=== PATIENT | female | born 1945 | race Caucasian/White ===

== ENCOUNTER → 2017-02-06 | Outpatient (CLI) | payer MEDICARE, BC ==
[2017-02-06 18:50] LABS: Basophils % (A) 1 %; CH 31.6; CHCM 32.1; Eosinophils # (A) 0.2 k/uL (0-0.7); Eosinophils % (A) 3 %; HCT 44.9 % (34.0-46.0); HDW 2.46; HGB 14.1 gm/dL (11.4-16.0); Luc # (Auto) 0.16; Luc % (Auto) 2; Lymphocytes # (A) 1.8 k/uL (1.0-4.8); Lymphocytes % (A) 27 %; MCH 30.9 pg (25.0-35.0); MCHC 31.3 g/dL (31.0-37.0); MCV 98.8 fL (80.0-100.0); Monocytes # (A) 0.4 k/uL (0-1.0); Monocytes % (A) 6 %; Neutrophils # (A) 4.1 k/uL (1.3-7.7); Neutrophils % (A) 62 %; RBC 4.54 m/uL (3.80-5.40); RDW 13.4 % (11.5-15.5); WBC 6.7 k/uL (3.8-10.6)
[2017-02-06 19:03] LABS: ALT 45 U/L (9-52); AST 25 U/L (14-36); Alkaline Phosphatase 122 U/L (38-126); Anion Gap 9 mmol/L; Blood Urea Nitrogen 17 mg/dL (7-17); Calcium 9.5 mg/dL (8.4-10.2); Carbon Dioxide 26 mmol/L (22-30); Chloride 105 mmol/L (98-107); Cholesterol 153 mg/dL (<200); Glucose 94 mg/dL (74-99); HDL Cholesterol 58 mg/dL (40-60); Non-African American GFR(MDRD) >60 (>60 ml/min/1.73 sqM); Potassium 4.9 mmol/L (3.5-5.1); Sodium 140 mmol/L (137-145); Total Bilirubin 0.6 mg/dL (0.2-1.3); Total Protein 6.9 g/dL (6.3-8.2)
== END | disposition home or self-care (01) ==
LOC: MMGSC 10:30
PROVIDERS: ATTEND Family Medicine
DX: E55.9 Vitamin D deficiency, unspecified (principal); E78.5 Hyperlipidemia, unspecified; I10 Essential (primary) hypertension; R79.89 Other specified abnormal findings of blood chemistry
CPT/HCPCS: 36415; 80053; 80061; 82306; 84439; 84443; 85025

== ENCOUNTER → 2017-11-22 | Outpatient (CLI) | payer MEDICARE, BC ==
--- NOTE | 2017-11-24 10:38 | MM ---
Reason for exam: screening (asymptomatic). Last mammogram was performed 14 years and 6 months ago. History: Patient is postmenopausal. Ultrasound-guided cyst aspiration of the left breast, December 26, 2001. 2 cyst aspirations of the left breast. Excisional biopsy of the left breast. Physical Findings: A clinical breast exam by your physician is recommended on an annual basis and results should be correlated with mammographic findings. MG 3D Screening Mammo W/Cad Bilateral CC and MLO view(s) were taken. Prior study comparison: May 19, 2003, left breast diagnostic mammogram. November 12, 2002, bilateral diagnostic mammogram. The breast tissue is heterogeneously dense. This may lower the sensitivity of mammography. Stable benign calcifications. Focal asymmetry upper left MLO view, 10.6cm from nipple. This finding is changed when compared with previous exams. ASSESSMENT: Incomplete: need additional imaging evaluation, BI-RAD 0 RECOMMENDATION: Special view mammogram of the left breast. If lesion persists on supplemental views, image directed ultrasound is recommended. [facility] will attempt to contact patient to return for supplemental views and ultrasound if indicated.
== END | disposition home or self-care (01) ==
LOC: RADMAMWWP 07:46
PROVIDERS: ATTEND Family Medicine
DX: Z12.31 Encounter for screening mammogram for malignant neoplasm of breast (principal)
CPT/HCPCS: 77063; 77067

== ENCOUNTER → 2017-12-05 | Outpatient (CLI) | payer MEDICARE, BC ==
--- NOTE | 2017-12-05 12:48 | MM ---
Reason for exam: additional evaluation requested from abnormal screening. Last mammogram was performed less than 1 month ago. History: Patient is postmenopausal. Ultrasound-guided cyst aspiration of the left breast, December 26, 2001. 2 cyst aspirations of the left breast. Excisional biopsy of the left breast. Took estrogen for 10 years beginning at age 38. Physical Findings: Nurse did not find any significant physical abnormalities on exam. MG 3D Work Up W/Cad LT Spot compression CC and spot compression MLO view(s) were taken of the left breast. Prior study comparison: November 22, 2017, bilateral MG 3d screening mammo w/cad. May 19, 2003, left breast diagnostic mammogram. The breast tissue is heterogeneously dense. This may lower the sensitivity of mammography. Persistent subtle 4mm focal asymmetry upper outer quadrant left breast at middle depth although improved from screening on additional views precautionary upper outer quadrant ultrasound will be performed. These results were verbally communicated with the patient and result sheet given to the patient on 12/05/17. ASSESSMENT: Incomplete: need additional imaging evaluation, BI-RAD 0 RECOMMENDATION: Ultrasound of the left breast. (upper outer quadrant)
--- NOTE | 2017-12-05 12:50 | USB ---
Reason for exam: additional evaluation requested from abnormal screening. History: Patient is postmenopausal. Ultrasound-guided cyst aspiration of the left breast, December 26, 2001. 2 cyst aspirations of the left breast. Excisional biopsy of the left breast. Took estrogen for 10 years beginning at age 38. US Breast Workup Limited LT Technologist: Mary Jo Kennedy, RT (R)(M) Left limited breast ultrasound including focal area of concern, retroareolar and axilla demonstrates no cystic or solid lesion seen. Left breast upper outer quadrant focal asymmetry on mammogram corresponds to an area of dense tissue. No suspicious sonographic findings. These results were verbally communicated with the patient and result sheet given to the patient on 12/05/17. ASSESSMENT: Benign, BI-RAD 2 RECOMMENDATION: Return to routine screening mammogram schedule for both breasts.
== END | disposition home or self-care (01) ==
LOC: RADMAMWWP 08:42
PROVIDERS: ATTEND Family Medicine
DX: R92.8 Other abnormal and inconclusive findings on diagnostic imaging of breast (principal)
CPT/HCPCS: 77065; 76642; G0279; 77061

== ENCOUNTER → 2019-01-02 | Outpatient (CLI) | payer MEDICARE, BC ==
--- NOTE | 2019-01-03 11:45 | MM ---
Reason for exam: screening (asymptomatic). Last mammogram was performed 1 year and 1 month ago. History: Patient is postmenopausal. Ultrasound-guided cyst aspiration of the left breast, December 26, 2001. 2 cyst aspirations of the left breast. Excisional biopsy of the left breast. Took estrogen for 10 years beginning at age 38. Physical Findings: A clinical breast exam by your physician is recommended on an annual basis and results should be correlated with mammographic findings. MG 3D Screening Mammo W/Cad Bilateral CC and MLO view(s) were taken. Prior study comparison: December 05, 2017, left breast MG 3d work up w/cad LT. November 22, 2017, bilateral MG 3d screening mammo w/cad. The breast tissue is heterogeneously dense. This may lower the sensitivity of mammography. Finding: There are typically benign round, diffuse/scattered, regional, linear calcifications in both breasts. Previous mammotome biopsy in the left breast. There is no discrete abnormality. ASSESSMENT: Benign, BI-RAD 2 RECOMMENDATION: Routine screening mammogram of both breasts in 1 year.
== END | disposition home or self-care (01) ==
LOC: RADMAMWWP 10:16
PROVIDERS: ATTEND Family Medicine
DX: Z12.31 Encounter for screening mammogram for malignant neoplasm of breast (principal)
CPT/HCPCS: 77063; 77067

== ENCOUNTER → 2020-09-03 | Outpatient (CLI) | payer MEDICARE, BC ==
--- NOTE | 2020-09-04 11:56 | MM ---
Reason for exam: screening (asymptomatic). Last mammogram was performed 1 year and 8 months ago. History: Patient is postmenopausal. Ultrasound-guided cyst aspiration of the left breast, December 26, 2001. 2 cyst aspirations of the left breast. Excisional biopsy of the left breast. Took estrogen for 10 years beginning at age 38. Physical Findings: A clinical breast exam by your physician is recommended on an annual basis and results should be correlated with mammographic findings. MG 3D Screening Mammo W/Cad Bilateral CC and MLO view(s) were taken. Prior study comparison: January 02, 2019, bilateral MG 3d screening mammo w/cad. December 05, 2017, left breast MG 3d work up w/cad LT. The breast tissue is heterogeneously dense. This may lower the sensitivity of mammography. Stable benign calcifications. There is no discrete abnormality. No significant changes when compared with prior studies. ASSESSMENT: Benign, BI-RAD 2 RECOMMENDATION: Routine screening mammogram of both breasts in 1 year.
== END | disposition home or self-care (01) ==
LOC: RADMAMWWP 10:43
PROVIDERS: ATTEND Family Medicine
DX: Z12.31 Encounter for screening mammogram for malignant neoplasm of breast (principal); Z78.0 Asymptomatic menopausal state
CPT/HCPCS: 77063; 77067

== ENCOUNTER → 2021-01-14 | Outpatient (CLI) | payer MEDICARE, BC ==
--- NOTE | 2021-01-14 13:24 | US ---
EXAMINATION TYPE: US venous doppler duplex LE LT DATE OF EXAM: 01/14/2021 1:01 PM COMPARISON: NONE CLINICAL HISTORY: R22.42 left lower limb swelling. left leg edema. patient on Plavix SIDE PERFORMED: left TECHNIQUE: The lower extremity deep venous system is examined utilizing real time linear array sonog crista with graded compression, doppler sonography and color-flow sonography. VESSELS IMAGED: Common Femoral Vein Deep Femoral Vein Greater Saphenous Vein * Femoral Vein Popliteal Vein Small Saphenous Vein * Proximal Calf Veins (* superficial vessels) Left Leg: no evidence of DVT IMPRESSION: 1. Left lower extremity ultrasound is negative for deep venous thrombosis.
== END | disposition home or self-care (01) ==
LOC: RADUSWWP 12:41
PROVIDERS: ATTEND Family Medicine
DX: R22.42 Localized swelling, mass and lump, left lower limb (principal)

== ENCOUNTER → 2021-04-01 | Outpatient (CLI) | payer MEDICARE, BC ==
--- NOTE | 2021-04-01 12:09 | CT ---
EXAMINATION TYPE: CT upper extremity LT wo con DATE OF EXAM: 04/01/2021 COMPARISON: None HISTORY: Soft tissue tumor, palpable abnormality left shoulder CT DLP: 373.60 mGycm Automated exposure control for dose reduction was used. Contrast: None Technique: Axial images 3 mm thick sections. Reconstructed images in the coronal plane and sagittal p gus. BBs teresa the palpable region. FINDINGS: The acromioclavicular junction is normal. Glenohumeral junction appears normal. No acute fractures of the visualized osseous structures are evident. Muscle density appears normal. Subcutaneous tissues appear normal. No discrete masses at the level ma rked by the 3 BBs are evident. Underlying lipoma may be difficult to visualize. Consider ultrasound o f the soft tissues. IMPRESSION: 1. NO DISCRETE ABNORMALITY BY CT AT THE PALPABLE REGIONS OF THE LEFT SHOULDER. 2. IF ADDITIONAL WORKUP WOULD BE OF BENEFIT, ULTRASOUND COULD BE PERFORMED TO EVALUATE FOR LIPOMAS.
== END ==
LOC: RADCTMAIN 07:11
PROVIDERS: ATTEND Family Medicine
DX: D21.12 Benign neoplasm of connective and other soft tissue of left upper limb, including shoulder (principal)

== ENCOUNTER → 2021-04-30 | Outpatient (CLI) | payer MEDICARE, BC ==
--- NOTE | 2021-04-30 10:59 | US ---
EXAMINATION TYPE: US extremity nonvasc mass LT DATE OF EXAM: 04/30/2021 COMPARISON: Prior ultrasound March 10, 2015. Prior CT April 01, 2021 CLINICAL HISTORY: R22.32 Left shoulder upper bicep mass. Palpable mass on left upper arm onset 2-3 ye ars ago, mass is increasing in size and tenderness. Left upper arm, anterior to lateral Deltoid muscle, An isoechoic mass is seen in palpable area measur ing 4.3 x 4.9 x 1.1 cm Images saved show superficial hyperechoic area indistinct or inseparable from adjacent subcutaneous f at could reflect focal lipoma. It is not well visualized as distinct lesion on recent CT or ultrasoun d. No suspicious vascular component on ultrasound. No suspicious solid nodular component not of fat d ensity or soft tissue densities septation on CT. IMPRESSION: Subcutaneous fat versus focal subcutaneous lipoma.
== END | disposition home or self-care (01) ==
LOC: RADUSWWP 10:26
PROVIDERS: ATTEND Family Medicine
DX: R22.32 Localized swelling, mass and lump, left upper limb (principal)

== ENCOUNTER → 2022-06-03 | Outpatient (CLI) | payer MEDICARE, BC ==
--- NOTE | 2022-06-06 08:55 | MM ---
Reason for Exam: Screening (asymptomatic). Last mammogram was performed 1 year(s) and 9 month(s) ago. Patient History: Menarche at age 10. First Full-Term at age 15. Postmenopausal. Estrogen for 10 years from age 38 until age 48. Cyst Aspiration on the Left side. Cyst Aspiration on the Left side. Excisional Biopsy on the Left side. 12/26/2001, Ultrasound-Guided Cyst Aspiration on the Left side. Risk Values: Roxie 5 year model risk: 1.4%. NCI Lifetime model risk: 2.4%. Prior Study Comparison: 12/05/2017 Left Diagnostic Mammogram, [facility]ED WITH [facility]. 01/02/2019 Bilateral Screening Mammogram, MERGED WITH [facility]. 09/03/2020 Bilateral Screening Mammogram, MERGED WITH [facility]. Tissue Density: The breast tissue is heterogeneously dense. This may lower the sensitivity of mammography. Findings: Analyzed By CAD. There is no suspicious group of microcalcifications or new suspicious mass in either breast. Benign calcifications within both breasts. Overall Assessment: Benign, BI-RAD 2 Management: Screening Mammogram of both breasts in 1 year. A clinical breast exam by your physician is recommended on an annual basis and results should be correlated with mammographic findings. Electronically signed and approved by: Heladio Miller D.O.
== END | disposition home or self-care (01) ==
LOC: RADMAMWWP 14:36
PROVIDERS: ATTEND Family Medicine
DX: Z12.31 Encounter for screening mammogram for malignant neoplasm of breast (principal); Z78.0 Asymptomatic menopausal state
CPT/HCPCS: 77063; 77067

== ENCOUNTER 2022-11-11 12:06 | Observation (INO) | payer MEDICARE, BC ==
[2022-11-11 12:53] LABS: Basophils % (A) 0 %; Eosinophils # (A) 0.3 k/uL (0-0.7); Eosinophils % (A) 3 %; HCT 41.1 % (34.0-46.0); HGB 13.9 gm/dL (11.4-16.0); Lymphocytes # (A) 2.4 k/uL (1.0-4.8); Lymphocytes % (A) 28 %; MCH 31.9 pg (25.0-35.0); MCHC 33.7 g/dL (31.0-37.0); MCV 94.7 fL (80.0-100.0); Mean Platelet Volume 8.2; Monocytes # (A) 0.7 k/uL (0-1.0); Monocytes % (A) 8 %; Neutrophils # (A) 5.2 k/uL (1.3-7.7); Neutrophils % (A) 59 %; Platelet Count 266 k/uL (150-450); RBC 4.34 m/uL (3.80-5.40); RDW 13.3 % (11.5-15.5); WBC 8.8 k/uL (3.8-10.6)
--- NOTE | 2022-11-11 12:57 | ED ---
Chest Pain HPI - General Chief Complaint: Chest Pain Stated Complaint: Chest pain Time Seen by Provider: 11/11/22 12:20 Source: patient Mode of arrival: ambulatory Limitations: no limitations - History of Present Illness Initial Comments: 77-year-old female presents to the emergency department reporting chest pain. Does have history of hypertension, hyperlipidemia and NM. Follows with Dr. Reynoso. Does not believe she has any stents. States that her pain started last night. She was awoken from sleep around 1 AM due to the pain. Located over the left chest and goes to the left shoulder and around her back. Pain is worse with movement and deep breathing. Denies fevers, chills or cough. No history of DVT or PE. No calf pain or swelling. Does admit to NM history. He is to take Plavix however has subsequently come off of that. Last heart cath was several years ago. Took an aspirin this morning. Denies taking any other medications for her symptoms. No other alleviating, precipitating or modifying factors - Related Data Home Medications Medication Instructions Recorded Confirmed ALPRAZolam [Xanax] 0.25 mg PO DAILY PRN 09/16/15 09/22/15 Atorvastatin [Lipitor] 80 mg PO DAILY 09/16/15 09/22/15 Clopidogrel [Plavix] 75 mg PO DAILY 09/16/15 09/22/15 atenoloL 25 mg PO DAILY 09/16/15 09/23/15 Allergies Allergy/AdvReac Type Severity Reaction Status Date / Time erythromycin base AdvReac Unknown FACE RED, Verified 11/11/22 12:12 FEELS "HYPER" rosuvastatin calcium AdvReac Unknown FACE RED , Verified 11/11/22 12:12 [From Crestor] FEEL "HYPER" Sulfa (Sulfonamide AdvReac Unknown FACE RED, Verified 11/11/22 12:12 Antibiotics) FEELS "HYPER" Review of Systems ROS Statement: Those systems with pertinent positive or pertinent negative responses have been documented in the HPI. ROS Other: All systems not noted in ROS Statement are negative. Past Medical History Past Medical History: Hyperlipidemia, Hypertension, Myocardial Infarction (NM) Last Myocardial Infarction Date:: ?2012 History of Any Multi-Drug Resistant Organisms: None Reported Past Surgical History: Back Surgery, Heart Catheterization, Joint Replacement, Orthopedic Surgery Additional Past Surgical History / Comment(s): cataract rt eey, TOTAL RIGHT HIP , RIGHT KNEE ARTHROSCOPY. Past Anesthesia/Blood Transfusion Reactions: No Reported Reaction Past Psychological History: Anxiety Past Alcohol Use History: Occasional Past Drug Use History: None Reported - Past Family History Brother(s) Family Medical History: Cancer Sister(s) Family Medical History: Cancer Daughter(s) Family Medical History: Cancer General Exam Limitations: no limitations General appearance: alert, in no apparent distress Head exam: Present: atraumatic, normocephalic, normal inspection Eye exam: Present: normal appearance, PERRL, EOMI. Absent: scleral icterus, conjunctival injection, periorbital swelling ENT exam: Present: normal exam, mucous membranes moist Neck exam: Present: normal inspection. Absent: tenderness, meningismus, lymphadenopathy Respiratory exam: Present: normal lung sounds bilaterally. Absent: respiratory distress, wheezes, rales, rhonchi, stridor Cardiovascular Exam: Present: regular rate, normal rhythm, normal heart sounds. Absent: systolic murmur, diastolic murmur, rubs, gallop, clicks GI/Abdominal exam: Present: soft, normal bowel sounds. Absent: distended, tenderness, guarding, rebound, rigid Extremities exam: Present: normal inspection, full ROM, normal capillary refill. Absent: tenderness, pedal edema, joint swelling, calf tenderness Back exam: Present: normal inspection Neurological exam: Present: alert, oriented X3, CN II-XII intact Psychiatric exam: Present: normal affect, normal mood Skin exam: Present: warm, dry, intact, normal color. Absent: rash Course Vital Signs 11/11/22 11/11/22 12:12 12:34 Temperature 98.4 F 97.8 F Pulse Rate 84 82 Respiratory 18 18 Rate Blood Pressure 131/82 152/80 O2 Sat by Pulse 95 95 Oximetry Chest Pain MDM - MDM Was pt. sent in by a medical professional or institution (, PA, BALL RACKER, urgent care, hospital, or long term...) When possible be specific @ -No Did you speak to anyone other than the patient for history (EMS, parent, family, police, friend...)? What history was obtained from this source @ -No Did you review nursing and triage notes (agree or disagree)? Why? @ -I reviewed and agree with nursing and triage notes Were old charts reviewed (outside hosp., previous admission, EMS record, old EKG, old radiological studies, urgent care reports/EKG's, long term records)? Report findings @ -Old EKG was reviewed and compared to EKG completed today Differential Diagnosis (chest pain, altered mental status, abdominal pain women, abdominal pain men, vaginal bleeding, weakness, fever, dyspnea, syncope, headache, dizziness, GI bleed, back pain, seizure, CVA, palpatations, mental health, musculoskeletal)? @ -Differential Chest Pain: Stable Angina, Unstable Angina, STEMI, NSTEMI Aortic Dissection, Pneumothorax, Musculoskeletal, Esophageal Spasm GERD, Cholecystitis, Pancreatitis, Zoster, this is not meant to be an all-inclusive list. EKG interpreted by me (3pts min.). @ -Yes and demonstrates sinus rhythm with a rate of 82. HI interval 198. QRS and 62. QTC of 460. Right bundle branch block. No acute ST segment elevations or depressions X-rays interpreted by me (1pt min.). @ -Yes and demonstrates no acute process CT interpreted by me (1pt min.). @ -None done U/S interpreted by me (1pt. min.). @ -None done What testing was considered but not performed or refused? (CT, X-rays, U/S, labs)? Why? @ -None What meds were considered but not given or refused? Why? @ -Nitro, morphine, Tylenol were all offered to the patient however she refused on 2 separate occasions Did you discuss the management of the patient with other professionals (professionals i.e. , PA, BALL RACKER, lab, RT, psych nurse, social worker school, highway patrol pilot, teacher, administrative officer, director of casework department)? Give summary @ -Dr. Okeefe was agreeable to take admission for the patient Was smoking cessation discussed for >3mins.? @ -No Was critical care preformed (if so, how long)? @ -No Were there social determinants of health that impacted care today? How? (Homelessness, low income, unemployed, alcoholism, drug addiction, transportation, low edu. Level, literacy, decrease access to med. care, senior living, rehab)? @ -No Was there de-escalation of care discussed even if they declined (Discuss DNR or withdrawal of care, Hospice)? DNR status @ -No What co-morbidities impacted this encounter? (DM, HTN, Smoking, COPD, CAD, Cancer, CVA, ARF, Chemo, Hep., AIDS, mental health diagnosis, sleep apnea, morbid obesity)? @ -Hypertension, hyperlipidemia Was patient admitted / discharged? Hospital course, mention meds given and route, prescriptions, significant lab abnormalities, going to OR and other pertinent info. @ -Upon arrival patient was placed into room 22. A thorough history and physical exam was performed. 12-lead EKG was completed which demonstrates no acute ST segment elevation. Patient remains on continuous pulse ox and cardiac monitoring. Laboratory studies are conducted. Chest x-ray was performed. Results are discussed with the patient. Due to her history of hypertension, hyperlipidemia and NM the patient will be admitted for chest pain. Spoke with Dr. Okeefe who who agreed to the admission. Undiagnosed new problem with uncertain prognosis? @ -yes Drug Therapy requiring intensive monitoring for toxicity (Heparin, Nitro, Insulin, Cardizem)? @ -No Were any procedures done? @ -No Diagnosis/symptom? @ -acute chest pain, possible acs, hx NM Acute, or Chronic, or Acute on Chronic? @ -acute Uncomplicated (without systemic symptoms) or Complicated (systemic symptoms)? @ -complicated Side effects of treatment? @ -No Exacerbation, Progression, or Severe Exacerbation? @ -No Poses a threat to life or bodily function? How? (Chest pain, USA, NM, pneumonia, PE, COPD, DKA, ARF, appy, cholecystitis, CVA, Diverticulitis, Homicidal, Suicidal, threat to staff... and all critical care pts) @ -Yes chest pain can indicate acute coronary event Disposition Clinical Impression: Chest pain Disposition: ADMITTED IP TO THIS HOSP Condition: Stable Is patient prescribed a controlled substance at d/c from ED?: No Referrals: Margot Pete MD [Primary Care Provider] - 1-2 days Time of Disposition: 14:29 Decision to Admit Reason: Admit from EC Decision Date: 11/11/22 Decision Time: 14:29
[2022-11-11 13:17] LABS: ALT 24 U/L (4-34); AST 25 U/L (14-36); African American GFR (CKD) >90 (>60 ml/min/1.73 sqM); Albumin 4.3 g/dL (3.5-5.0); Alkaline Phosphatase 117 U/L (38-126); Anion Gap 10 mmol/L; Blood Urea Nitrogen 18 mg/dL (7-17); Carbon Dioxide 24 mmol/L (22-30); Chloride 104 mmol/L (98-107); Glucose 61 mg/dL (74-99); Lipase 79 U/L (23-300); Magnesium 2.1 mg/dL (1.6-2.3); Non-African American GFR(CKD) 86 (>60 ml/min/1.73 sqM); Potassium 3.7 mmol/L (3.5-5.1); Sodium 138 mmol/L (137-145); Total Bilirubin 0.6 mg/dL (0.2-1.3)
[2022-11-11 13:29] LABS: INR 0.9 (<1.2); Partial Thromboplastin Time 25.8 sec (22.0-30.0); Prothrombin Time 9.5 sec (9.0-12.0)
--- NOTE | 2022-11-11 13:52 | XR ---
EXAMINATION TYPE: XR chest 2V DATE OF EXAM: 11/11/2022 COMPARISON: NONE HISTORY: Cough and chest pain. TECHNIQUE: Frontal and lateral views of the chest are obtained. FINDINGS: There is no focal air space opacity, pleural effusion, or pneumothorax seen. The cardiac silhouette size is within normal limits. Scoliotic curvature of multilevel spurring in the spine. Cho lecystectomy clips are seen. IMPRESSION: No acute cardiopulmonary process.
[2022-11-11] MEDS ORDERED: NALOXONE 0.4 MG/ML 1 ML VIAL IV PRN (14:29)
[2022-11-11] MEDS ORDERED: ASPIRIN 81 MG PO STA (14:30)
[2022-11-11] MEDS ORDERED: ALPRAZolam 0.5 MG TAB PO PRN (15:15)
[2022-11-11] MEDS ORDERED: NITROGLYCERIN OINT 1 INCH/GM PACKET TOPICAL STA ×2 (15:16→18:41)
[2022-11-11] MEDS ORDERED: DEXTROSE 50% SYRINGE 50 ML IVP PRN ×2 (15:17)
[2022-11-11] MEDS ORDERED: HYDROcodone/APAP 5-325MG 1 EACH TAB PO PRN (15:18)
[2022-11-11] MEDS ORDERED: MELATONIN 3 MG TABLET PO PRN (15:18)
[2022-11-11] MEDS ORDERED: ACETAMINOPHEN TAB 325 MG TAB PO PRN (15:18)
[2022-11-11 15:43] LABS: Appearance,Urine Clear (Clear); Bilirubin,Urine Negative (Negative); Blood,Urine Negative (Negative); Color,Urine Light Yellow; Glucose,Urine (UA) Negative (Negative); Ketones,Urine Negative (Negative); Leukocyte Esterase,Urine Negative (Negative); Nitrite,Urine Negative (Negative); Protein,Urine Negative (Negative); Specific Gravity,Urine 1.005 (1.001-1.035); Urobilinogen,Urine <2.0 mg/dL (<2.0)
[2022-11-11 16:03] LABS: Glucose,Whole Blood 101 mg/dL (70-110)
[2022-11-11 17:16] LABS: Glucose,Whole Blood 122 mg/dL (70-110)
--- NOTE | 2022-11-11 18:19 | P.HPIM ---
History of Present Illness H&P Date: 11/11/22 History of Presenting Illness: Patient is a very pleasant 77-year-old female with a past medical history of hypertension, hyperlipidemia, and osteoarthritis. She presented to the emergency department with a chief complaint of left-sided chest pain. Patient reports this came on yesterday while sitting in the chair and reading her book. She reports she follows up outpatient with laboratory assistant, Dr. Reynoso and recently underwent a stress test last week secondary to need for cardiac clearance to undergo elective knee replacement. Patient reports pain is a pressure-like pain radiating directly into her back/shoulder blade. Patient reports in addition to this chest pain she has since noticed having an occasional dry cough. She denies having any fevers, chills, diaphoresis, headache, lightheadedness, dizziness, shortness of breath, palpitations, sinus congestion or drainage, nausea, vomiting, abdominal pain, or experiencing any numbness/tingling/weakness/swelling in her extremities. She underwent full evaluation in the emergency department. Vital signs upon arrival were blood pressure 131/82, heart rate 84, respiratory rate 18, SpO2 95% on room air, and temp 98.4F. EKG was completed showing normal sinus rhythm 82 bpm with a right bundle-branch block and T-wave inversion in inferior leads II and aVF with no previous EKG available for comparison upon personal review and interpretation. Chest x-ray completed, lungs appear clear and radiology report reviewed stating negative for acute cardiopulmonary process. Labs completed and reviewed. CBC unremarkable. Coags normal findings. D-dimer negative at 0.55. BMP showing hypoglycemia with glucose of 61. Liver profile unremarkable. Troponin negative at less than 0.012. ProBNP 209. Amylase and lipase normal findings. Urinalysis was negative for infection. Patient was given aspirin. Discussed patient complains, clinical findings, laboratory analysis, and imaging results in detail with the ED physician. Patient being admitted to observation unit with telemetry under our services. Consult placed to cardiology. Review of systems: Pertinent positives and negatives as discussed in HPI, a complete review of systems was performed and all other systems are negative. Physical exam: Vital signs reviewed and stable. General: Nontoxic, no distress and appears stated age. Derm: Skin warm and dry, normal coloration for ethnicity. Head: Atraumatic, normocephalic and symmetric. Eyes: EOMs intact, no lid lag, and anicteric sclera Mouth: no lip lesions, mucus membranes moist Cardiovascular: regular rate and rhythm with normal S1S2, no murmur, positive posterior tibial pulses bilaterally, and cap refill < 2 seconds. Lungs: Respirations even, regular, and unlabored on room air. Lungs CTA bilaterally, no rhonchi, no rales, no wheezing, and no accessory muscle usage. Abdominal: soft, nontender to palpation, no guarding, no appreciable organomegaly Ext: ROM intact. No gross muscle atrophy, no edema, no contractures Neuro: Speech clear, face symmetrical and CN II-XII grossly intact with no noted focal neuro deficits Psych: Alert and oriented to person, place, time, and situation. Appropriate and pleasant affect. Assessment and Plan of Care: Chest pain, rule out acute coronary event. Hypertension Hyperlipidemia -Vital signs upon arrival were blood pressure 131/82, heart rate 84, respiratory rate 18, SpO2 95% on room air, and temp 98.4F. -EKG was completed showing normal sinus rhythm 82 bpm with a right bundle-branch block and T-wave inversion in inferior leads II and aVF with no previous EKG available for comparison upon personal review and interpretation. -Chest x-ray completed, lungs appear clear and radiology report reviewed stating negative for acute cardiopulmonary process. -Labs completed and reviewed. CBC unremarkable. Coags normal findings. D-dim er negative at 0.55. BMP showing hypoglycemia with glucose of 61. Liver profile unremarkable. Troponin negative at less than 0.012. ProBNP 209. Amylase and lipase normal findings. -Urinalysis was negative for infection. Patient was given aspirin in the emergency department. Discussed patient complains, clinical findings, laboratory analysis, and imaging results in detail with the ED physician. -Patient being admitted to observation unit with telemetry under our services. -Consult placed to cardiology. -Patient to remain on continuous telemetry monitoring. -Order placed for Nitrostat ointment 1 inch. -Home medications reviewed and reordered. Patient to continue with cardiac me dication regimen including amlodipine 2.5 mg nightly, atorvastatin 80 mg nightly, metoprolol 50 mg daily, and aspirin 81 mg daily. -Troponins to be trended every 3 hours 2. -Echocardiogram to be completed. Hypoglycemia -Patient with no known history of diabetes and asymptomatic to hypoglycemic santhosh nt. -Order placed for blood glucose checks every 6 hours and hypoglycemic protocol. The patient is admitted with an anticipated less than 2 midnight stay for evaluation of chest pain CODE STATUS: Full code DVT prophylaxis: Heparin Discussed with: Patient, RN, in ED physician Anticipated discharge date: 24-[address]: Home Patient was seen independently by Nurse Practitioner. This document was prepared using [employer] dictation software. Please allow for errors in camera repairer while rare they do occur. Mauricio Carolina NP rendered care for this patient independently, reviewed the findings and plan as documented in the note above. I did not physically speak with or examine the patient on this date. Past Medical History Past Medical History: Hyperlipidemia, Hypertension, Myocardial Infarction ([place]) Last Myocardial Infarction Date:: ?2012 History of Any Multi-Drug Resistant Organisms: None Reported Past Surgical History: Back Surgery, Heart Catheterization, Joint Replacement, Orthopedic Surgery Additional Past Surgical History / Comment(s): cataract rt eey, TOTAL RIGHT HIP , RIGHT KNEE ARTHROSCOPY. Past Anesthesia/Blood Transfusion Reactions: No Reported Reaction Past Psychological History: Anxiety Past Alcohol Use History: Occasional Past Drug Use History: None Reported - Past Family History Brother(s) Family Medical History: Cancer Sister(s) Family Medical History: Cancer Daughter(s) Family Medical History: Cancer Medications and Allergies Home Medications Medication Instructions Recorded Confirmed Type Atorvastatin [Lipitor] 80 mg PO HS 09/16/15 11/11/22 History ALPRAZolam [Xanax] 0.5 mg PO DAILY PRN 11/11/22 11/11/22 History Aspirin 81 mg PO DAILY 11/11/22 11/11/22 History Metoprolol Succinate (ER) [Toprol 50 mg PO DAILY 11/11/22 11/11/22 History Xl] Multivitamins, Thera [Multivitamin 1 tab PO DAILY 11/11/22 11/11/22 History (formulary)] amLODIPine [Norvasc] 2.5 mg PO HS 11/11/22 11/11/22 History Allergies Allergy/AdvReac Type Severity Reaction Status Date / Time erythromycin base AdvReac Unknown FACE RED, Verified 11/11/22 14:39 FEELS "HYPER" rosuvastatin calcium AdvReac Unknown FACE RED , Verified 11/11/22 14:39 [From Crestor] FEEL "HYPER" Sulfa (Sulfonamide AdvReac Unknown FACE RED, Verified 11/11/22 14:39 Antibiotics) FEELS "HYPER" Physical Exam Vitals: Vital Signs Temp Pulse Resp BP Pulse Ox 11/11/22 12:34 97.8 F 82 18 152/80 95 11/11/22 12:12 98.4 F 84 18 131/82 95 Intake and Output 11/11/22 11/11/22 11/11/22 06:59 14:59 22:59 Other: Weight 72.121 kg Results CBC & Chem 7: 11/11/22 12:45 11/11/22 12:45 Labs: Abnormal Lab Results - Last 24 Hours (Table) 11/11/22 Range/Units 12:45 BUN 18 H (7-17) mg/dL Glucose 61 L (74-99) mg/dL
[2022-11-11] MEDS: HEPARIN SODIUM,PORCINE/PF 5,000 UNIT/0.5 ML SYRINGE SQ SCH (18:28)
[2022-11-11] MEDS ORDERED: LORazepam 2 MG/ML INJ IV STA (18:58)
[2022-11-11 20:02] LABS: Glucose,Whole Blood 140 mg/dL (70-110)
[2022-11-11] MEDS ORDERED: amLODIPine 2.5 MG TAB PO SCH (21:00)
[2022-11-11] MEDS ORDERED: ATORVASTATIN 80 MG TAB PO SCH (21:00)
[2022-11-12] MEDS: HEPARIN SODIUM,PORCINE/PF 5,000 UNIT/0.5 ML SYRINGE SQ SCH ×2 (00:02→08:41)
[2022-11-12 02:26] VITALS: RESP 16
[2022-11-12 02:35] LABS: Glucose,Whole Blood 106 mg/dL (70-110)
[2022-11-12 06:26] LABS: Glucose,Whole Blood 103 mg/dL (70-110)
[2022-11-12] MEDS ORDERED: ASPIRIN 81 MG PO SCH (09:00)
[2022-11-12] MEDS ORDERED: METOPROLOL SUCCINATE (ER) 50 MG TAB.ER.24H PO SCH (09:00)
[2022-11-12 09:26] LABS: Basophils # (A) 0.04 X 10*3/uL (0.00-0.10); Basophils % (A) 0.5 %; Eosinophils # (A) 0.18 X 10*3/uL (0.04-0.35); Eosinophils % (A) 2.4 %; HCT 38.8 % (37.2-46.3); Lymphocytes # (A) 1.82 X 10*3/uL (0.90-5.00); Lymphocytes % (A) 23.8 %; MCH 31.8 pg (27.0-32.0); MCHC 33.5 d/dL (32.0-37.0); MCV 94.9 FL (80.0-97.0); Mean Platelet Volume 10.7 FL (9.5-12.2); Monocytes # (A) 0.63 X 10*3/uL (0.20-1.00); Monocytes % (A) 8.2 %; NRBC Per 100 WBC 0 X 10*3/uL (0.00-0.01); Neutrophils # (A) 4.94 X 10*3/uL (1.80-7.70); Neutrophils % (A) 64.6 %; Platelet Count 243 X 10*3/uL (140-440); RBC 4.09 X 10*6/uL (4.10-5.20); RDW 13.2 % (11.5-14.5); WBC 7.65 X 10*3/uL (4.50-10.00)
--- NOTE | 2022-11-12 09:38 | P.CRDCN ---
History of Present Illness Consult date: 11/12/22 Consult reason: chest pain History of present illness: History of present illness: This is a 77 year old female patient of Dr. Supa nixon with past medical history of nonobstructive coronary artery disease per cath in 2012, hypertension, hyperlipidemia. We have been asked to evaluate the patient for chest pain. Patient was last seen in the office on 10/31 at which time she was scheduled for Lexiscan stress test which was performed . Report was not available on the computer. Patient is scheduled for echocardiogram in December. Patient states that after she had her stress test on she developed left-sided chest pain and back pain she went to bed but couldn't lay down and be comfortable. It was bothering her around her back and she ended up laying on her right side to make it feel better. By 1 AM she woke up and the pain had worsened. She got up and sat in a chair and drink coffee. She went to her hair appointment and after that she seems to be worse again. She called [facility] office and was told to go to the emergency center. Patient states that she was seen in October in preparation for a right knee surgery. At this time, patient states she is feeling a lot better. She complains of a dry cough for 1 week. No fever or chills, no lightheadedness or dizziness, she does complain of headache. Patient relates that last night she was provided nitro paste and about an hour and half after she started shaking with body aches and requested that it be removed. About 5 minutes later symptoms resolved. EKG sinus rhythm with right bundle branch block Chest x-ray: No acute process CBC unremarkable. INR 0.9. D-dimer 0.55. Electrolytes normal. BUN 18 and creatinine 0.63. Blood sugar 140. Troponin negative 3. ProBNP 209. Liver function tests normal. Urinalysis negative. Home cardiac medications: Amlodipine 2.5 mg at bedtime, aspirin 81 mg daily, atorvastatin 80 mg at bedtime, Toprol-XL 50 mg daily. Echocardiogram 2020 revealed EF 55% with mild to moderate MR MPI 2020 EF 60% and no ischemia Review Of Systems: At the time of my evaluation: Constitutional: No fever, no chills. No weakness, fatigue or lethargy. EENT: No headache. No dizziness. Lungs: No shortness of breath, cough, no sputum production. No wheezing. Cardiovascular: No chest pain at this time, no lower extremity edema. No palpitations. No paroxysmal nocturnal dyspnea. No orthopnea. No lightheadedness or dizziness. No syncopal episodes. Abdominal: No abdominal pain. No nausea, vomiting. No diarrhea. No cons tipation. No bloody or tarry stools. Genitourinary: No dysuria.. No urinary retention. Musculoskeletal: No myalgias. No muscle weakness, no frequent falls. No back pain. No neck pain. Integumentary: No wounds. No rash. No unusual bruising. Neurologic: No aphasia. No facial droop. No change in mentation. No head injury. No headache. Physical examination: Gen: This is a 77-year-old female. She is resting in bed appears to be comfortable and in no acute distress. VS: reviewed. Blood pressure 150/76, heart rate in the 70s and 80s, pulse ox 95% on room air, afebrile HEENT: Head is atraumatic, normocephalic. Pupils equal, round. Sclerae is anicteric. NECK: Supple. No JVD. LUNGS: Clear to auscultation. No wheezes or rhonchi. No intercostal retractions. HEART: Regular rate and rhythm. Systolic murmur. ABDOMEN: Soft No tenderness. EXTREMITIES: No pedal edema. No calf tenderness. NEUROLOGICAL: Patient is awake, alert and oriented x3. Assessment: Chest pain, acute coronary syndrome ruled out Nonobstructive coronary artery disease Hypertension Hyperlipidemia Osteoarthritis right knee with plan for surgery Plan: Resume patient's home cardiac medications Lexiscan stress test report is not available from the office. Obtain 2-D echocardiogram and Doppler study to assess cardiac structure and function Patient is cleared for discharge and may follow-up in the office with Dr. Reynoso in 1-2 weeks. Thank you kindly for this consultation. Nurse practitioner note has been reviewed, I agree with documented findings and plan of care. Patient was seen and examined. Past Medical History Past Medical History: Hyperlipidemia, Hypertension, Myocardial Infarction ([place]) Last Myocardial Infarction Date:: ?2012 History of Any Multi-Drug Resistant Organisms: None Reported Past Surgical History: Back Surgery, Heart Catheterization, Joint Replacement, Orthopedic Surgery Additional Past Surgical History / Comment(s): cataract rt eey, TOTAL RIGHT HIP , RIGHT KNEE ARTHROSCOPY. Past Anesthesia/Blood Transfusion Reactions: No Reported Reaction Past Psychological History: Anxiety Past Alcohol Use History: Occasional Past Drug Use History: None Reported - Past Family History Brother(s) Family Medical History: Cancer Sister(s) Family Medical History: Cancer Daughter(s) Family Medical History: Cancer Medications and Allergies Home Medications Medication Instructions Recorded Confirmed Type Atorvastatin [Lipitor] 80 mg PO HS 09/16/15 11/11/22 History ALPRAZolam [Xanax] 0.5 mg PO DAILY PRN 11/11/22 11/11/22 History Aspirin 81 mg PO DAILY 11/11/22 11/11/22 History Metoprolol Succinate (ER) [Toprol 50 mg PO DAILY 11/11/22 11/11/22 History Xl] Multivitamins, Thera [Multivitamin 1 tab PO DAILY 11/11/22 11/11/22 History (formulary)] amLODIPine [Norvasc] 2.5 mg PO HS 11/11/22 11/11/22 History Allergies Allergy/AdvReac Type Severity Reaction Status Date / Time erythromycin base AdvReac Unknown FACE RED, Verified 11/11/22 14:39 FEELS "HYPER" rosuvastatin calcium AdvReac Unknown FACE RED , Verified 11/11/22 14:39 [From Crestor] FEEL "HYPER" Sulfa (Sulfonamide AdvReac Unknown FACE RED, Verified 11/11/22 14:39 Antibiotics) FEELS "HYPER" Physical Exam Vitals: Vital Signs Temp Pulse Pulse Resp BP BP BP 11/12/22 02:00 98.4 F 82 16 128/68 11/12/22 01:36 18 11/11/22 20:54 98.2 F 85 18 172/87 11/11/22 20:16 18 11/11/22 19:16 98.3 F 75 16 149/67 11/11/22 16:45 97.9 F 72 16 148/69 11/11/22 16:04 64 18 144/73 11/11/22 12:34 97.8 F 82 18 152/80 11/11/22 12:12 98.4 F 84 18 131/82 Pulse Ox 11/12/22 02:00 95 11/12/22 01:36 11/11/22 20:54 97 11/11/22 20:16 11/11/22 19:16 96 11/11/22 16:45 96 11/11/22 16:04 96 11/11/22 12:34 95 11/11/22 12:12 95 Intake and Output 11/11/22 11/12/22 11/12/22 22:59 06:59 14:59 Other: Voiding Method Toilet # Voids 1 1 Weight 72.121 kg Results 11/12/22 06:22 11/11/22 12:45 Cardiac Enzymes 11/11/22 11/11/22 11/11/22 Range/Units 12:45 12:45 15:18 AST 25 (14-36) U/L Troponin I <0.012 <0.012 (0.000-0.034) ng/mL 11/11/22 Range/Units 17:40 AST (14-36) U/L Troponin I <0.012 (0.000-0.034) ng/mL Coagulation 11/11/22 Range/Units 12:45 PT 9.5 (9.0-12.0) sec APTT 25.8 (22.0-30.0) sec CBC 11/11/22 Range/Units 12:45 WBC 8.8 (3.8-10.6) k/uL RBC 4.34 (3.80-5.40) m/uL Hgb 13.9 (11.4-16.0) gm/dL Hct 41.1 (34.0-46.0) % Plt Count 266 (150-450) k/uL Comprehensive Metabolic Panel 11/11/22 Range/Units 12:45 Sodium 138 (137-145) mmol/L Potassium 3.7 (3.5-5.1) mmol/L Chloride 104 (98-107) mmol/L Carbon Dioxide 24 (22-30) mmol/L BUN 18 H (7-17) mg/dL Creatinine 0.63 (0.52-1.04) mg/dL Glucose 61 L (74-99) mg/dL Calcium 9.0 (8.4-10.2) mg/dL AST 25 (14-36) U/L ALT 24 (4-34) U/L Alkaline Phosphatase 117 (38-126) U/L Total Protein 7.0 (6.3-8.2) g/dL Albumin 4.3 (3.5-5.0) g/dL Current Medications Generic Name Dose Route Start Last Admin Trade Name Freq PRN Reason Stop Dose Admin Acetaminophen 650 mg 11/11/22 15:18 Acetaminophen Tab 325 Mg Tab PO Q6HR PRN Mild Pain or Fever > 100.5 Hydrocodone Bitart/Acetaminophen 1 each 11/11/22 15:18 Hydrocodone/Apap 5-325mg 1 Each Tab PO Q4HR PRN Moderate Pain (Scale 4 to 6) Alprazolam 0.5 mg 11/11/22 15:15 11/11/22 20:31 Alprazolam 0.5 Mg Tab PO 0.5 mg DAILY PRN Administration Anxiety Amlodipine Besylate 2.5 mg 11/11/22 21:00 11/11/22 20:14 Amlodipine 2.5 Mg Tab PO 2.5 mg HS IJEOMA Administration Aspirin 81 mg 11/12/22 09:00 Aspirin 81 Mg PO DAILY IJEOMA Atorvastatin Calcium 80 mg 11/11/22 21:00 11/11/22 20:14 Atorvastatin 80 Mg Tab PO 80 mg HS IJEOMA Administration Dextrose/Water 50 ml 11/11/22 15:17 Dextrose 50% Syringe 50 Ml IVP PER PROTOCOL PRN Hypoglycemia Protocol Dextrose/Water 25 ml 11/11/22 15:17 Dextrose 50% Syringe 50 Ml IVP PER PROTOCOL PRN Hypoglycemia Protocol Heparin Sodium (Porcine) 5,000 unit 11/11/22 16:00 11/12/22 00:02 Heparin Sodium,Porcine/Pf 5,000 Unit/0.5 Ml Syringe SQ 5,000 unit Q8HR IJEOMA Administration Melatonin 3 mg 11/11/22 15:18 Melatonin 3 Mg Tablet PO HS PRN Insomnia Metoprolol Succinate 50 mg 11/12/22 09:00 Metoprolol Succinate (Er) 50 Mg Tab.Er.24h PO DAILY IJEOMA Naloxone HCl 0.2 mg 11/11/22 14:29 Naloxone 0.4 Mg/Ml 1 Ml Vial IV Q2M PRN Opioid Reversal Intake and Output 11/11/22 11/12/22 11/12/22 22:59 06:59 14:59 Other: Voiding Method Toilet # Voids 1 1 Weight 72.121 kg 11/11/22 12:45 11/11/22 12:45
--- NOTE | 2022-11-12 10:17 | CA ---
Transthoracic Echo Report Name: Angelia Corcoran Age: 77 Gender: F : 1945 Exam Date: 11/12/2022 07:18 Exam Location: [facility] Ht (in): 64 Wt (lb): 159 Ordering Physician: Mauricio Carolina Attending/Referring Phys: Ge Martínez;[id number] Building Mover Bailee Frank RDCS Procedure CPT: Indications: Evaluate structure and function Cardiac Hx: Technical Quality: Good Contrast 1: Total Dose (mL): Contrast 2: Total Dose (mL): MEASUREMENTS (Male / Female) Normal Values 2D ECHO LV Diastolic Diameter PLAX 4.2 cm 4.2 - 5.9 / 3.9 - 5.3 cm LV Systolic Diameter PLAX 2.8 cm IVS Diastolic Thickness 1.2 cm 0.6 - 1.0 / 0.6 - 0.9 cm LVPW Diastolic Thickness 1.0 cm 0.6 - 1.0 / 0.6 - 0.9 cm LV Relative Wall Thickness 0.5 RV Internal Dim ED PLAX 3.8 cm LA Systolic Diameter LX 4.0 cm 3.0 - 4.0 / 2.7 - 3.8 cm LV Diastolic Volume MOD BP 41.1 cm??? 67 - 155 / 56 - 104 cm??? LV Systolic Volume MOD BP 20.5 cm??? - 58 / 19 - 49 cm??? LV Ejection Fraction MOD BP 50.1 % >= 55 % LV Cardiac Index MOD BP 848.5 cm???/min???m??? LV Diastolic Volume MOD 4C 49.7 cm??? LV Systolic Volume MOD 4C 20.7 cm??? LV Ejection Fraction MOD 4C 58.4 % LV Cardiac Index MOD 4C 1193.5 cm???/min???m??? LV Diastolic Length 4C 7.1 cm LV Systolic Length 4C 5.8 cm LV Diastolic Volume MOD 2C 35.2 cm??? LV Systolic Volume MOD 2C 17.8 cm??? LV Ejection Fraction MOD 2C 49.4 % LV Cardiac Index MOD 2C 716.2 cm???/min???m??? LV Diastolic Length 2C 7.0 cm LV Systolic Length 2C 6.9 cm LA Volume 47.9 cm??? 18 - 58 / 22 - 52 cm??? M-MODE Aortic Root Diameter MM 3.7 cm MV E Point Septal Separation 0.4 cm AV Cusp Separation MM 2.1 cm DOPPLER AV Peak Velocity 135.4 cm/s AV Peak Gradient 7.3 mmHg MV Area PHT 3.2 cm??? Mitral E Point Velocity 85.6 cm/s Mitral A Point Velocity 106.6 cm/s Mitral E to A Ratio 0.8 MV Deceleration Time 238.9 ms MV E' Velocity 8.1 cm/s Mitral E to MV E' Ratio 10.6 TR Peak Velocity 214.2 cm/s TR Peak Gradient 18.3 mmHg Right Ventricular Systolic Press 23.3 mmHg FINDINGS Left Ventricle Left ventricular ejection fraction is estimated at 60-65 %. Left ventricular cavity size normal. Mildly increased septal wall thickness. Mildly increased posterior wall thickness. Right Ventricle Mild right ventricular dilatation. Right ventricular systolic pressure within normal limits. Right Atrium Normal right atrial size. Left Atrium Mildly increased left atrial diameter. Mitral Valve Mitral valve thickened. Mitral annular calcification. Aortic Valve Trileaflet aortic valve. No aortic valve stenosis or regurgitation. Tricuspid Valve Structurally normal tricuspid valve. Mild tricuspid regurgitation. Pulmonic Valve Structurally normal pulmonic valve. Trace pulmonic regurgitation. Pericardium Normal pericardium. No pericardial effusion. Aorta Normal size aortic root and proximal ascending aorta. CONCLUSIONS Normal LV systolic function Previewed by: Dr. Giorgio Xie MD (Electronically Signed) Final Date: 12 November 2022 10:17
[2022-11-12 11:54] LABS: Blood Urea Nitrogen 11.2 mg/dL (9.0-27.0); Chloride 103 mmol/L (96-109); Glucose 109 mg/dL (70-110); Potassium 4.1 mmol/L (3.5-5.5); Sodium 138 mmol/L (135-145)
[2022-11-12 12:32] LABS: Glucose,Whole Blood 90 mg/dL (70-110)
--- NOTE | 2022-11-12 13:49 | P.DS ---
Providers Date of admission: 11/11/22 14:30 Expected date of discharge: 11/12/22 Attending physician: Josh Okeefe MD Consults: 11/11/22 14:29 Consult Physician Urgent Consulting Provider: [facility] Consult Reason/Comments: acute chest pain Do you want consulting provider notified?: Yes Primary care physician: [facility] Course: Chest pain, rule out acute coronary event. Hypertension Hyperlipidemia Hypoglycemia Hospital Course: Patient is a very pleasant 77-year-old female with a past medical history of hypertension, hyperlipidemia, and osteoarthritis. She presented to the emergency department with a chief complaint of left-sided chest pain. She underwent full evaluation in the emergency department. Vital signs upon arrival were blood pressure 131/82, heart rate 84, respiratory rate 18, SpO2 95% on room air, and temp 98.4F. EKG was completed showing normal sinus rhythm 82 bpm with a right bundle-branch block and T-wave inversion in inferior leads II and aVF with no previous EKG available for comparison upon personal review and interpretation. Chest x-ray completed, lungs appear clear and radiology report reviewed stating negative for acute cardiopulmonary process. Labs completed and reviewed. CBC unremarkable. Coags normal findings. D-dimer negative at 0.55. BMP showing hypoglycemia with glucose of 61. Liver profile unremarkable. Troponin negative at less than 0.012. ProBNP 209. Amylase and lipase normal findings. Urinalysis was negative for infection. Patient was given aspirin. Discussed patient complains, clinical findings, laboratory analysis, and imaging results in detail with the ED physician. Patient being admitted to observation unit with telemetry under our services. Consult placed to cardiology. They evaluated the patient with echocardiogram which showed EF of 60-65%, no WMA and reviewed results of resulted completed stress test which was done in the outpatient setting. Based on their evaluation, patient was cleared for discharge with outpatient follow up with cardiology. Gen: awake, alert HEENT: normocephalic, atraumatic, good hearing acuity, moist mucous membranes Resp: good air exchange, breathing comfortably with no accessory muscle use CVS: good distal perfusion x 4, GI: soft, NTTP, ND : no SPT, no CVAT, jon catheter not present MSK: no pitting edema, no clubbing Neuro: non-focal, moving all extremities Psych: cooperative, euthymic mood Patient Condition at Discharge: Good Plan - Discharge Summary New Discharge Prescriptions: New Acetaminophen Tab [Tylenol] 650 mg PO Q6HR PRN tab PRN Reason: Mild Pain Or Fever > 100.5 Continue Atorvastatin [Lipitor] 80 mg PO HS ALPRAZolam [Xanax] 0.5 mg PO DAILY PRN PRN Reason: Anxiety Aspirin 81 mg PO DAILY Metoprolol Succinate (ER) [Toprol XL] 50 mg PO DAILY amLODIPine [Norvasc] 2.5 mg PO HS Multivitamins, Thera [Multivitamin (formulary)] 1 tab PO DAILY Discharge Medication List Atorvastatin [Lipitor] 80 mg PO HS 09/16/15 [History] ALPRAZolam [Xanax] 0.5 mg PO DAILY PRN 11/11/22 [History] Aspirin 81 mg PO DAILY 11/11/22 [History] Metoprolol Succinate (ER) [Toprol XL] 50 mg PO DAILY 11/11/22 [History] Multivitamins, Thera [Multivitamin (formulary)] 1 tab PO DAILY 11/11/22 [History] amLODIPine [Norvasc] 2.5 mg PO HS 11/11/22 [History] Acetaminophen Tab [Tylenol] 650 mg PO Q6HR PRN tab 11/12/22 [Rx] Follow up Appointment(s)/Referral(s): Nelly Reynoso MD [Family Provider] - 1 Week Margot Pete MD [Primary Care Provider] - 1-2 days Discharge Disposition: HOME SELF-CARE
[2022-11-12 15:37] VITALS: BP 138/74; PULSE 74; TEMP 98.3
== END 2022-11-12 15:07 | disposition home or self-care (01) ==
LOC: EC 12:06 → 6NMEDSUR 14:30
PROVIDERS: ADMIT Student in an Organized Health Care Education/Training Program; ATTEND Student in an Organized Health Care Education/Training Program
DX: R07.89 Other chest pain (principal); I10 Essential (primary) hypertension; E16.2 Hypoglycemia, unspecified; I45.10 Unspecified right bundle-branch block; I25.10 Atherosclerotic heart disease of native coronary artery without angina pectoris; E78.5 Hyperlipidemia, unspecified; M17.11 Unilateral primary osteoarthritis, right knee; F41.9 Anxiety disorder, unspecified; R05.9 Cough, unspecified; I25.2 Old myocardial infarction; Z79.02 Long term (current) use of antithrombotics/antiplatelets; Z79.82 Long term (current) use of aspirin; Z79.899 Other long term (current) drug therapy; Z88.1 Allergy status to other antibiotic agents; Z88.2 Allergy status to sulfonamides; Z88.8 Allergy status to other drugs, medicaments and biological substances; Z90.49 Acquired absence of other specified parts of digestive tract; Z96.641 Presence of right artificial hip joint; Z98.41 Cataract extraction status, right eye; Z98.890 Other specified postprocedural states; Z80.9 Family history of malignant neoplasm, unspecified
CPT/HCPCS: 96372; 99285; 36415; 93005; 93306; 85379; 83880; 80053; 80048; 83690; 83735; 84484; 85025 ×2; 85610; 85730; 81003; 71046; G0378 ×2; J1644

== ENCOUNTER → 2023-12-12 | Outpatient (CLI) | payer MEDICARE, BC | END | disposition home or self-care (01) | LOC: LABWHC1 10:01 | PROVIDERS: ATTEND Internal Medicine Interventional Cardiology | DX: R53.83 Other fatigue (principal) | CPT/HCPCS: 36415; 84443 ==